=== PATIENT | male | born 1945 | race Caucasian/White ===

== ENCOUNTER 2019-07-10 08:08 | Outpatient (CLI) | payer OTHER, SELFPAY ==
--- NOTE | 2019-07-10 08:19 | MR_ITS ---
WS: [id number] MRI of the right hand, 07/10/2019 Clinical Data: RIGHT HAND PAIN Comparison: Right hand x-ray, 05/20/2019 Findings: There is narrowing of the right third MP joint. No periarticular inflammatory changes seen. There are no soft tissue masses. There is no evidence of any joint destruction. The carpal bones, metacarpals and phalanges appear to be intact with normal bone marrow signal. The carpal tunnel appears to be nor mal. The flexor and extensor tendons show no inflammatory change. MR/MR hand RT wo con* [id number] Impression: 1. Narrowing of the right third MP joint. 2. Negative for inflammatory change in the soft tissues. 3. No evidence of any joint destruction or periarticular soft tissue masses.
== END 2019-07-10 08:09 | disposition home or self-care (01) ==
LOC: RADWPI 08:09
PROVIDERS: Family Provider Family Medicine; Visit Provider Specialist
DX: M19.041 Primary osteoarthritis, right hand (principal)
CPT/HCPCS: 73218

== ENCOUNTER 2020-04-22 10:05 | Emergency (ER) | payer OTHER, SELFPAY ==
[2020-04-22 10:20] VITALS: BP 160/75; PULSE 79; RESP 18; TEMP 38.6; O2SAT 94; BMI 27.2
[2020-04-22 11:21] VITALS: O2SAT 90; O2SAT 92
--- NOTE | 2020-04-22 12:15 | ED_ITS ---
HPI - COVID General: Chief Complaint: Fever Stated Complaint: Weakness/SOB/ Covid + Saturday Time Seen by Provider: 04/22/20 11:29 Triage information: Has fever, cough or shortness of breath . No known COVID + exposure last 14 days History of Present Illness: HPI Narrative: 74-year-old male presents emergency room with complaint of cough cold congestion [facility]. He tested +2 days ago and the 6 symptoms started on the . Sheet he is on day 10 of symptoms today. He was referred here to get Covid monoclonal antibody infusion. MD complaint: known COVID positive Prior testing date: 04/20/20 COVID 19 common symptoms: positive fever(s), chills, cough, non-productive cough, fatigue, body aches, nasal congestion and nausea COVID 19 other sytmptoms: positive chest pressure; negative chest pain or requiring oxygen Pertinent comorbid conditions: hypertension and COPD/respiratory disease Treatment prior to arrival: acetaminophen and ibuprofen COVID Results: No Data to Display Review of Systems Const: Reports: fever(s), chills, body aches and fatigue ENMT: Reports: nasal congestion Card: Denies: chest pain, edema, dyspnea on exertion or orthopnea Resp: Reports: non-productive cough GI: Reports: nausea : Denies: flank pain, dysuria, urinary frequency or urinary urgency Skin/Breast: Denies: rash or pruritus PFS ED PFSH: Medical History COPD (chronic obstructive pulmonary disease) History of high blood pressure Social History Smoking and tobacco status: former smoker Alcohol intake: never Physical Exam Const: COMMON NORMALS: no acute distress GENERAL APPEARANCE: cooperative and comfortable ORIENTATION/CONSCIOUSNESS: Yes awake, Yes oriented to person, Yes oriented to place and Yes oriented to time HENMT: COMMON NORMALS: normocephalic, atraumatic and hearing grossly normal bilaterally HEAD & SCALP: normocephalic and atraumatic Neck/C-Spine: COMMON NORMALS: no JVD Resp: COMMON NORMALS: normal respiratory effort, No retractions, No use of accessory muscles and clear to auscultation bilaterally AUSCULTATION: clear to auscultation bilaterally Cardio: COMMON NORMALS: no JVD, regular rate, regular rhythm and No murmurs present (Cardio) RATE: regular rate RHYTHM: regular rhythm GI: COMMON NORMALS: Soft to palpation and No hepatosplenomegaly present AUSCULTATION: Yes normoactive bowel sounds PALPATION: Yes Soft to palpation, No Tenderness to palpation present (GI), No Guarding due to palpation present (GI) and Yes No hepatosplenomegaly present Extremity: COMMON NORMALS: normal to inspection, capillary refill normal, no clubbing, cyanosis or edema, no calf tenderness and no pedal edema Neuro: SENSORIUM/ORIENTATION: Yes oriented to person, Yes oriented to place and Yes oriented to time Skin: COMMON NORMALS: no rashes or lesions noted GENERAL SKIN EXAM: no rashes or lesions noted Course Vital Signs: Vital signs: Vital Signs Temperature 101.4 F H 04/22/20 10:20 Pulse Rate 79 04/22/20 10:20 Respiratory Rate 18 04/22/20 10:20 Blood Pressure 160/75 04/22/20 10:20 Pulse Oximetry 92 04/22/20 11:21 MDM - COVID MDM Narrative: Medical decision making narrative: She is on day 10 he can qualify for monoclonal antibody infusion but will need to get it today we called her and made arrangements with the infusion clinic. Patient discharged from here directly to there to receive monoclonal antibody infusion. We reviewed the consent risks benefits and alternatives here he prefers to go forward with it. COVID Results: No Data to Display Discharge Plan Discharge Patient Disposition: Home Clinical Impression: COVID-19 Condition: Stable Prescriptions: New dexamethasone 6 mg tablet 6 mg PO DAILY Qty: 7 RF: 0 albuterol sulfate 90 mcg/actuation HFA aerosol inhaler 2 inh INHALATION Q4H PRN (Reason: shortness of breath or wheezing) Qty: 18 RF: 0 No Action omeprazole 20 mg capsule,delayed release(DR/EC) 20 mg PO DAILY RF: 0 losartan 100 mg tablet 100 mg PO DAILY RF: 0 lysine 1,000 mg tablet 1,000 mg PO DAILY RF: 0 flaxseed oil 1,000 mg capsule 1,200 mg PO DAILY RF: 0 aspirin 81 mg tablet,delayed release (DR/EC) 81 mg PO DAILY RF: 0 methocarbamol 500 mg tablet 500 mg PO TID RF: 0 tramadol 50 mg tablet 50 mg PO DAILY RF: 0 melatonin 5 mg capsule PO RF: 0 Discharge Orders: Discharge ED (Routine); Ordered 04/22/20 Ordered By: Shadi Marie Referrals: [facility] [Primary Care Provider] - Discharge Diet: Usual diet Discharge Activity: Increase activity as tolerated Activity Restrictions/Additional Instructions: Patient will be discharged and brought over to the infusion clinic to receive monoclonal antibodies Coding Level of Care Code ED Police Pilot for Charmaine Siegel
== END 2020-04-22 12:28 | disposition home or self-care (01) ==
PROVIDERS: Emergency Provider Family Medicine
DX: U07.1 COVID-19 (principal); Z79.82 Long term (current) use of aspirin; J44.9 Chronic obstructive pulmonary disease, unspecified; Z87.891 Personal history of nicotine dependence
CPT/HCPCS: 12345; 99281

== ENCOUNTER → 2021-01-26 09:55 | Outpatient (BNVA) | payer OTHER, SELFPAY | PROVIDERS: Visit Provider Internal Medicine Pulmonary Disease | DX: Z01.812 Encounter for preprocedural laboratory examination (principal); Z20.822 Contact with and (suspected) exposure to COVID-19 | CPT/HCPCS: 87635 ==

== ENCOUNTER 2021-02-01 09:26 | Outpatient (CLI) | payer OTHER, SELFPAY ==
--- NOTE | 2021-02-01 10:44 | PFTS_ITS ---
Date of Study:02/01/21 Date of Dictation: MECHANICS: Forced vital capacity (FVC) is reduced. Forced expiratory volume in one second (FEV1) is reduced. FEV1/FVC is normal. FLOW VOLUME LOOP: Reduced flow at all lung volumes with scooping. LUNG VOLUMES: Total lung capacity (TLC) is normal. Residual volume (RV) is increased. DIFFUSING CAPACITY FOR CARBON MONOXIDE: Normal. INTERPRETATION: The prebronchodilator spirometry is consistent with severe airflow obstruction. The postbronchodilator spirometry is consistent with moderate restriction. The patient has a significant postbronchodilator response. Lung volumes are consistent with air trapping. Gas exchange (DLCO) is normal. The constellation of these findings is consistent with reversible airflow obstruction. MTDD
--- NOTE | 2021-02-01 11:00 | CT_ITS ---
WS: [id number] CT CHEST TECHNIQUE: Noncontrast CT of the chest with coronal and sagittal reformatted images. CLINICAL INFORMATION: dyspnea COMPARISON: None. DLP: 644.[address] scans at [facility] use at least one of these dose optimization techniques: automated e xposure control; mA and/or kV adjustment per patient size (includes targeted exams where dose is matc hed to clinical indication); or iterative reconstruction. FINDINGS: Moderate chronic emphysematous changes. Small noncalcified nodule left lower lobe measuring 4 mm. Rec ommend 12 month follow-up. No acute pulmonary infiltrates. No focal pneumonia or pleural fluid. Subse gmental atelectasis in the lung bases right greater than left. A few calcified granulomas. Aortic urbano cification. Coronary calcification. No mediastinal or hilar lymphadenopathy. No axillary lymphadenopa thy. Incidental hepatic cysts. Adrenal glands are normal. Normal GE junction. Mild thoracic kyphosis. Mild hypertrophic changes lower thoracic spine. CT/CT chest wo con [id number] IMPRESSION: 1. Moderate chronic emphysematous changes. No acute pulmonary infiltrates. 2. No focal pneumonia or pleural fluid 3. Slight subsegmental atelectasis in lung bases. 4. Small nodule left lower lobe measuring 4 mm. Recommend 12 month follow-up.
== END 2021-02-01 09:27 | disposition home or self-care (01) ==
LOC: RT 09:28
PROVIDERS: PCP Family Medicine; Visit Provider Internal Medicine Pulmonary Disease
DX: B94.8 Sequelae of other specified infectious and parasitic diseases (principal); R06.00 Dyspnea, unspecified; Z87.891 Personal history of nicotine dependence; R91.1 Solitary pulmonary nodule
CPT/HCPCS: 71250; 94060; 94618; 94726; 94729; J7611

== ENCOUNTER 2021-02-07 12:14 | Outpatient (CLI) | payer OTHER, SELFPAY ==
--- NOTE | 2021-02-07 | USCV_ITS ---
Dobutamine Stress Echo Jose Bradley Age: 75 Gender: M : 1945 Exam Date: 02/07/2021 12:43 Ordering Phys: Cisco Castillo MD Technologist: Acacia Davidson [place] [facility] [place]: Dyspnea, Former Smoker Rhythm: Sinus Patient History: Chest pain, Smoker Cardiac Medications: Non-dihydropyridine calcium channel miguel ángel Medications in past 24 hours: NONE Contrast: Total Dose (mL): Stress Results Protocol: Pharmacologic Peak Dose (???g/kg/min): 30 Duration (min:sec): 08:35 Atropine:(mg) 0.5 Target HR: 124 Double Product: 11752 Resting HR: 65 Resting BP: 139 / 65 Peak HR: 150 Peak BP: 160 / 79 Max Predicted HR: 146 103 % Max Predicted HR Stress Summary: The hemodynamic response to stress was normal. BP Response: Normal Reason for Termination: Exceeded target heart rate (85% max predicted) Cardiac Symptoms: Short of Breath ECG Analysis Resting EKG: Stress EKG: Arrhythmia: MEASUREMENTS (Male/Female) Normal Values FINDINGS Baseline: Normal left ventricle ejection fraction estimated ejection fraction 55%. No baseline wall motion abnormality Peak exercise level: Augmentation of left ventricle cavity was good no new wall motion abnormality noted Recovery: No new wall motion abnormality. CONCLUSIONS Echocardiographic portion of the stress test was not suggestive of ischemia. EKG segment will be documented separately. Rhianna Sinha MD (Electronically Signed) Final Date: 07 February 2021 20:02 S
[2021-02-07 12:25] VITALS: BMI 27.9
--- NOTE | 2021-02-07 12:30 | ECG_ITS ---
[facility] Test Date: 2021-02-07 Pat Name: Jose Bradley Department: Room: Gender: Male [employer]er: : 1945 Requested By: Cisco Owensr Marcus Order Number: [id number] Jennifer MD: FAROOQ GOMEZ Interpretive Statements NAME OF STUDY: DOBUTAMINE STRESS ECHOCARDIOGRAM INDICATION: Dyspnea, Former Smoker EXERCISE DATA: IV dobutamine was infused as per protocol. Baseline heart rate was 65 beats per minute. Baseline blood pressure was 139/65 millimeters of mercury. Target heart rate was 146 beats per minute. Maximum heart rate achieved was 150, which was 102 % of the target heart rate. Maximum blood pressure was 160/79 millimeters of mercury. Total exercise time was 8 minutes 35.The reason for ending the test was completion of the protocol. The patient complained of shortness of during the stress test, which then resolved at the end of the test. ELECTROCARDIOGRAM: BASELINE: Showed sinus rhythm, normal axis, no significant ST-T changes at the baseline noted. EXERCISE: At the peak exercise level, no significant ST-T changes suggestive of ischemia noted. RECOVERY: During the recovery period, heart rate dropped appropriately. No significant ST-T changes in the recovery suggestive of ischemia noted. CONCLUSION: 1. Heart rate response was appropriate. 2. Blood pressure response was appropriate. 3. Symptoms not suggestive of ischemia. 4. Electrocardiogram portion of the stress test was not suggestive of ischemia. 5. Nuclear scan will be documented separately. Electronically Signed On 02-09-2021 21:28:48 CDT by FAROOQ GOMEZ [id number]
[2021-02-07] MEDS: sodium chloride 0.9% 250 ML 75 ML IV (12:54)
[2021-02-07] MEDS: DOBUTtamine 200 MG in sodium chloride 0.9% 34 ML 13 MG IV (12:57)
[2021-02-07] MEDS: atropine 0.1 mg/mL Syr 10 mL 0.5 MG IVP (13:05)
[2021-02-07] MEDS: metoprolol tartrate 1 mg/1 mL SDV 5 mL 5 MG IVP (13:08)
[2021-02-07 13:37] VITALS: BP 156/84; PULSE 98
== END 2021-02-07 12:15 | disposition home or self-care (01) ==
LOC: CDL 12:17
PROVIDERS: PCP Family Medicine; Visit Provider Internal Medicine Pulmonary Disease
DX: R06.00 Dyspnea, unspecified (principal); Z87.891 Personal history of nicotine dependence
CPT/HCPCS: 93017; 93350; J0461; J1250; J3490; J7050

== ENCOUNTER → 2021-03-14 09:46 | Outpatient (BNVA) | payer OTHER, SELFPAY | PROVIDERS: PCP Family Medicine; Visit Provider Nurse Practitioner Family | DX: R06.02 Shortness of breath (principal); T50.B95A Adverse effect of other viral vaccines, initial encounter; I10 Essential (primary) hypertension | CPT/HCPCS: 80048; 83880 ==

== ENCOUNTER 2021-04-19 13:35 | Outpatient (CLI) | payer OTHER, SELFPAY ==
--- NOTE | 2021-04-19 14:15 | USCV_ITS ---
Jose Bradley Age: 75 Gender: M : 1945 Exam Date: 04/19/2021 14:18 Ordering Phys: Rhianna Sinha MD ([email or web address]) Technologist: [place] [facility] [place]: MURMUR BP: 140 / 82 HR: 64 Rhythm: Sinus Technical Quality: Adequate MEASUREMENTS (Male / Female) Normal Values 2D ECHO LV Diastolic Diameter PLAX 4.3 cm 4.2 - 5.9 / 3.9 - 5.3 cm LV Systolic Diameter PLAX 2.2 cm IVS Diastolic Thickness 1.1 cm 0.6 - 1.0 / 0.6 - 0.9 cm IVS Systolic Thickness 1.3 cm LVPW Diastolic Thickness 1.0 cm 0.6 - 1.0 / 0.6 - 0.9 cm LVPW Systolic Thickness 1.2 cm LVOT Diameter 2.1 cm LV Ejection Fraction 2D Teich 79.5 % LV Ejection Fraction MOD 2C 70.4 % LV Ejection Fraction 2C AL 70.6 % LA Diameter 3.6 cm LA Width 3.4 cm LA Height 4.5 cm RA Width 3.8 cm RA Height 4.2 cm M-MODE Aortic Annulus Diameter 4.0 cm LA Ao Ratio MM 1.0 MV E Point Septal Separation 0.6 cm DOPPLER AV Peak Velocity 152.0 cm/s LVOT Peak Velocity 108.0 cm/s AV Area Cont Eq vti 2.4 cm squared AV Area Cont Eq pk 2.4 cm squared MV Area PHT 5.0 cm squared Mitral E to A Ratio 0.8 MV E' Velocity 54.0 cm/s Mitral E to LV E' Septal Ratio 4.6 TR Peak Velocity 185.0 cm/s TR Peak Gradient 13.7 mmHg TV Peak E Velocity 89.0 cm/s Right Atrial Pressure 3.0 mmHg Pulmonary Artery Systolic Pressu 16.7 mmHg FINDINGS Left Ventricle Normal left ventricular cavity size. Normal left ventricular systolic function. No regional wall motion abnormalities. Left ventricular ejection fraction is estimated at 65 %. Grade I/IV diastolic dysfunction (abnormal relaxation filling pattern), normal to mildly elevated filling pressures. Right Ventricle The right ventricle is normal in size and function. Right Atrium The right atrium is normal in size. Left Atrium The left atrium is normal in size. Mitral Valve Mildly thickened mitral valve. No mitral valve stenosis. Mild mitral valve regurgitation. Aortic Valve Structurally normal aortic valve without significant sclerosis or stenosis. There is no aortic regurgitation. Tricuspid Valve Structurally normal tricuspid valve without significant stenosis or regurgitation. Pulmonary artery systolic pressure is normal. Pulmonic Valve Structurally normal pulmonic valve without significant stenosis. There is no pulmonic regurgitation. Pericardium Normal pericardium without effusion. Aorta Normal ascending aorta dimension. CONCLUSIONS 1-Normal left ventricular cavity size. Normal left ventricular systolic function. No regional wall motion abnormalities. Left ventricular ejection fraction is estimated at 65 %. Grade I/IV diastolic dysfunction (abnormal relaxation filling pattern), normal to mildly elevated filling pressures. 2-Mildly thickened mitral valve. No mitral valve stenosis. Mild mitral valve regurgitation. 3-Right atrial pressure is around 5 mm of mercury. 4-There is no pericardial effusion. 5-There are no prior echocardiogram studies to compare. Rhianna Sinha MD (Electronically Signed) Final Date: 19 April 2021 18:26 S
== END 2021-04-19 13:36 | disposition home or self-care (01) ==
LOC: RAD 13:36
PROVIDERS: PCP Family Medicine; Visit Provider Internal Medicine Cardiovascular Disease
DX: I27.20 Pulmonary hypertension, unspecified (principal); R06.02 Shortness of breath; R07.9 Chest pain, unspecified; R01.1 Cardiac murmur, unspecified; I05.9 Rheumatic mitral valve disease, unspecified
CPT/HCPCS: 93306

== ENCOUNTER 2021-05-08 12:33 | Outpatient (CLI) | payer OTHER, SELFPAY ==
[2021-05-08 13:19] LABS: Basophils # 0.1 10^3/uL (0.0-0.1); Eosinophils # 0.5 10^3/uL (0.0-0.8); Eosinophils % 6.3 %; Hemoglobin 14.4 g/dL (11.7-16.6); Lymphocytes # 1.9 10^3/uL (0.8-4.8); Mean Corpuscular HGB Conc 32.7 g/dL (30.0-36.0); Mean Corpuscular Hemoglobin 30.1 pg (28.0-34.0); Mean Corpuscular Volume 91.9 fl (80-94); Mean Platelet Volume 10.6 fL (7.4-10.4); Monocytes # 0.6 10^3/uL (0.2-0.9); Monocytes % 7.6 %; Neutrophils # 4.23 10^3/uL (1.8-7.7); Neutrophils % 58.8 %; Nucleated Red Blood Cells % 0 %; Platelet Count 310 10^3/cmm (130-400); Red Blood Count 4.79 10^6/uL (4.1-5.3); Red Cell Distribution Width 13.6 % (12.1-15.1); White Blood Count 7.2 10^3/uL (4.0-10.0)
[2021-05-09 13:53] LABS: Alternaria Alternata (M6) Ige <0.10 kU/L; Alternaria Class 0; Bermuda Class 0/1; Cat Dander (E1) Ige 0.51 kU/L; Cat Dander Class 1; D. Farinae Class 1; Dermatophagoides Class 1; Dermatophagoides Farinae (D2) 0.45 kU/L; Dermatophagoides Pteronyssinus 0.52 kU/L; Dog Dander (E5) Ige 0.22 kU/L; Dog Dander Class 0/1; Elm (T8) Ige <0.10 kU/L; House Dust (Greer) (H1) Ige <0.10 kU/L; House Dust (Hollister- Stier) 0.11 kU/L; House Dust Class 0; House Dust Class 0/1; Immunoglobulin E 398 kU/L (<OR=114); Immunoglobulin E 411 kU/L (<OR=114); Johnson Grass (G10) Ige <0.10 kU/L; Johnson Grass Cl 0; June Grass Class 0; June Grass(Kentucky Blue) (G8) <0.10 kU/L; Maple (Box Elder) (T1) Ige <0.10 kU/L; Maple Class 0; Meadow Fescue (G4) Ige <0.10 kU/L; Meadow Fescue Class 0; Mucor Racemosus Class 0; Oak (T7) Ige <0.10 kU/L; Oak Class 0; Orchard Grass (Cocksfoot) (G3) <0.10 kU/L; Penicillium Class 0; Penicillium Notatum (M1) Ige <0.10 kU/L; Perennial Rye Grass (G5) Ige <0.10 kU/L; Perennial Rye Grass Class 0; Sweet Vernal Class 0; Sweet Vernal Grass (G1) Ige <0.10 kU/L; Timothy Grass (G6) Ige <0.10 kU/L; Timothy Grass Class 0
[2021-05-09 13:57] LABS: Common Ragweed (Short) (W1) Ig <0.10 kU/L; Elm Class 0; English Plantain (W9) Ige <0.10 kU/L; English Plantain Class 0; Lamb'S Quarters (Goose Foot) 0.11 kU/L; Lamb'S Quarters Class 0/1; Ragweeed Class 0; Rough Marsh Elder (W16) Ige 0.11 kU/L; Rough Marsh Elder Class 0/1
[2021-05-10 20:52] LABS: Aspergillus Fumigatus, Igg Ab, 18.7 mg/L (<=102)
== END 2021-05-08 12:34 | disposition home or self-care (01) ==
LOC: LAB 12:37
PROVIDERS: PCP Family Medicine; Visit Provider Internal Medicine Pulmonary Disease
DX: R06.02 Shortness of breath (principal); J44.9 Chronic obstructive pulmonary disease, unspecified; J84.9 Interstitial pulmonary disease, unspecified
CPT/HCPCS: 36415; 82785; 85025; 86003; 86331; 86606; 86609

== ENCOUNTER → 2021-06-09 09:35 | Outpatient (BNVA) | payer OTHER, SELFPAY | PROVIDERS: PCP Family Medicine; Visit Provider Nurse Practitioner Family | DX: Z20.822 Contact with and (suspected) exposure to COVID-19 (principal) | CPT/HCPCS: 87635 ==

== ENCOUNTER → 2021-08-04 08:30 | Outpatient (BNVA) | payer OTHER, SELFPAY | PROVIDERS: PCP Family Medicine; Visit Provider Urology | DX: R97.20 Elevated prostate specific antigen [PSA] (principal); N40.1 Benign prostatic hyperplasia with lower urinary tract symptoms | CPT/HCPCS: 81003; 84153 ==

== ENCOUNTER → 2021-08-07 09:17 | Outpatient (BNVA) | payer OTHER, SELFPAY | PROVIDERS: PCP Family Medicine; Visit Provider Internal Medicine Pulmonary Disease | DX: J44.9 Chronic obstructive pulmonary disease, unspecified (principal); R91.1 Solitary pulmonary nodule; Z12.2 Encounter for screening for malignant neoplasm of respiratory organs; Z87.891 Personal history of nicotine dependence; U09.9 Post COVID-19 condition, unspecified; I10 Essential (primary) hypertension; K21.9 Gastro-esophageal reflux disease without esophagitis; E11.8 Type 2 diabetes mellitus with unspecified complications; N40.0 Benign prostatic hyperplasia without lower urinary tract symptoms | CPT/HCPCS: 99214 ==

== ENCOUNTER 2021-12-05 08:56 | Outpatient (CLI) | payer OTHER, SELFPAY | END 2021-12-05 08:57 | disposition home or self-care (01) | LOC: LAB 08:59 | PROVIDERS: PCP Family Medicine; Visit Provider Urology | DX: R97.20 Elevated prostate specific antigen [PSA] (principal); N40.1 Benign prostatic hyperplasia with lower urinary tract symptoms | CPT/HCPCS: 36415; 51798; 84153; 99213 ==

== ENCOUNTER 2022-03-07 09:33 | Outpatient (CLI) | payer OTHER, SELFPAY ==
--- NOTE | 2022-03-07 10:30 | CT_ITS ---
WS: [id number] CT CHEST WITHOUT INTRAVENOUS CONTRAST HISTORY: Follow-up pulmonary nodule. TECHNIQUE: Contiguous 5 mm axial imaging performed on the thorax. Coronal and sagittal reformats are submitted. All CT scans at [facility] use at least one of these dose optimization techniques: automated exposure control; mA and/or kV adjustment per patient size (includes targeted exams where dose is matched to clinical indication); or iterative reconstruction. CONTRAST: None DLP: 769.31 mGy.cm COMPARISON: 02/01/2021 Lungs and central airway: Mild pulmonary hyperexpansion. No increase in size of the 4 mm pulmonary no dule in the LEFT lower lobe. Subsegmental areas of scarring or atelectasis at the lung bases bilatera lly. Pleura: Normal. No pleural effusion. Heart and pericardium: Normal size heart with no pericardial effusion. Mediastinum and lauren: No adenopathy. Vessels: Mild atherosclerosis aorta. No dilatation. Moderate coronary artery calcification. Chest wall and lower neck: No soft tissue masses. Upper abdomen: Hepatic steatosis. No change in the low-attenuation 1.3 cm mass in the RIGHT lobe the liver. There are a few additional scattered similar hypodensities. Probably representing cysts. No in crease in size. No bile duct dilatation. Mild contraction of the gallbladder. Osseous structures: Increase in thoracic kyphosis. No osteoblastic or osteolytic bone disease. CT/CT chest con [id number] IMPRESSION: 1. No increase in size of the 4 mm LEFT lower lobe pulmonary nodule. Recommend [address] follow-up for surveillance. 2. Moderate coronary artery atherosclerosis. 3. Mild atherosclerosis aorta. 4. Chronic emphysema.
== END 2022-03-07 09:34 | disposition home or self-care (01) ==
LOC: RAD 09:33
PROVIDERS: PCP Family Medicine; Visit Provider Internal Medicine Pulmonary Disease
DX: R91.1 Solitary pulmonary nodule (principal); I25.10 Atherosclerotic heart disease of native coronary artery without angina pectoris; I70.0 Atherosclerosis of aorta; J43.9 Emphysema, unspecified
CPT/HCPCS: 71250

== ENCOUNTER 2022-06-04 08:42 | Outpatient (CLI) | payer OTHER, SELFPAY ==
[2022-06-04 09:42] LABS: Prostate Specific AG Urology 11.87 ng/mL (0-4)
== END 2022-06-04 08:43 | disposition home or self-care (01) ==
LOC: LAB 08:44
PROVIDERS: PCP Family Medicine; Visit Provider Urology
DX: R97.20 Elevated prostate specific antigen [PSA] (principal)
CPT/HCPCS: 36415; 84153

== ENCOUNTER → 2022-06-05 09:51 | Outpatient (BNVA) | payer OTHER, SELFPAY | PROVIDERS: PCP Family Medicine; Visit Provider Urology | DX: R97.20 Elevated prostate specific antigen [PSA] (principal); N40.1 Benign prostatic hyperplasia with lower urinary tract symptoms | CPT/HCPCS: 81003; 99213 ==

== ENCOUNTER → 2023-03-04 07:58 | Outpatient (BNVA) | payer OTHER, SELFPAY | PROVIDERS: PCP Family Medicine; Visit Provider Thoracic Surgery (Cardiothoracic Vascular Surgery) | DX: S91.115D Laceration without foreign body of left lesser toe(s) without damage to nail, subsequent encounter; W23.0XXD Caught, crushed, jammed, or pinched between moving objects, subsequent encounter | CPT/HCPCS: 97597; 99213; A6021 ==

== ENCOUNTER → 2023-03-11 08:47 | Outpatient (BNVA) | payer OTHER, SELFPAY | PROVIDERS: PCP Family Medicine; Visit Provider Nurse Practitioner Family | DX: S67.193D Crushing injury of left middle finger, subsequent encounter (principal); W23.0XXD Caught, crushed, jammed, or pinched between moving objects, subsequent encounter | CPT/HCPCS: 99212 ==

== ENCOUNTER → 2023-03-18 08:47 | Outpatient (BNVA) | payer OTHER, SELFPAY | PROVIDERS: PCP Family Medicine; Visit Provider Thoracic Surgery (Cardiothoracic Vascular Surgery) | DX: Z09 Encounter for follow-up examination after completed treatment for conditions other than malignant neoplasm (principal); Z87.2 Personal history of diseases of the skin and subcutaneous tissue | CPT/HCPCS: 99212 ==

== ENCOUNTER 2024-05-07 12:36 | Outpatient (CLI) | payer OTHER, SELFPAY | END 2024-05-07 12:37 | disposition home or self-care (01) | LOC: LAB 12:38 | PROVIDERS: PCP Family Medicine; Visit Provider Urology | DX: C61 Malignant neoplasm of prostate (principal) | CPT/HCPCS: 36415; 84153 ==

== ENCOUNTER 2024-11-05 13:51 | Outpatient (CLI) | payer OTHER, SELFPAY ==
[2024-11-05 14:52] LABS: Prostate Specific Antigen 2.400 ng/mL (0-4)
== END 2024-11-05 13:52 | disposition home or self-care (01) ==
LOC: LAB 13:56
PROVIDERS: PCP Family Medicine; Visit Provider Urology
DX: C61 Malignant neoplasm of prostate (principal)
CPT/HCPCS: 36415; 84153

== ENCOUNTER → 2025-01-18 08:20 | Outpatient (BNVA) | payer OTHER, SELFPAY | PROVIDERS: PCP Family Medicine; Visit Provider Internal Medicine | DX: J44.89 Other specified chronic obstructive pulmonary disease (principal); R91.1 Solitary pulmonary nodule; Z87.891 Personal history of nicotine dependence; J44.9 Chronic obstructive pulmonary disease, unspecified | CPT/HCPCS: 99214; Q3014 ==

== ENCOUNTER → 2025-02-18 12:48 | Outpatient (BNVA) | payer OTHER, SELFPAY | PROVIDERS: PCP Family Medicine; Visit Provider Internal Medicine | DX: J44.89 Other specified chronic obstructive pulmonary disease (principal); R91.1 Solitary pulmonary nodule; Z87.891 Personal history of nicotine dependence; J44.9 Chronic obstructive pulmonary disease, unspecified | CPT/HCPCS: 99214; Q3014 ==

== ENCOUNTER → 2025-02-19 08:55 | Outpatient (BNVA) | payer OTHER, SELFPAY | PROVIDERS: PCP Family Medicine; Visit Provider Dermatology | DX: L71.9 Rosacea, unspecified (principal); D36.15 Benign neoplasm of peripheral nerves and autonomic nervous system of abdomen; D48.5 Neoplasm of uncertain behavior of skin | CPT/HCPCS: 11102; 69100; 99204 ==

== ENCOUNTER 2025-03-25 12:10 | Emergency (ER) | payer OTHER, SELFPAY ==
[2025-03-25 12:13] VITALS: BP 128/72; PULSE 101; TEMP 36.7; O2SAT 97; BMI 25.8
--- NOTE | 2025-03-25 12:28 | XR_ITS ---
WS: [id number] XR ribs RT mn 3V w CXR1V [id number] REASON FOR EXAM: injury FINDINGS: No acute rib fracture identified. No pneumothorax or subcutaneous emphysema. No pleural effusion. XR/XR ribs RT mn 3V w CXR1V [id number] IMPRESSION: No acute abnormality.
--- NOTE | 2025-03-25 12:28 | CTR_ITS ---
PROCEDURE INFORMATION: Exam: CT Head Without Contrast Exam date and time: 03/25/2025 12:51 PM Age: 79 years old Clinical indication: Injury or trauma TECHNIQUE: Imaging protocol: Computed tomography of the head without contrast. Radiation optimization: All CT scans at this facility use at least one of these dose optimization techniques: automated exposure control; mA and/or kV adjustment per patient size (includes targeted exams where dose is matched to clinical indication); or iterative reconstruction. COMPARISON: No relevant prior studies available. RADIATION DOSE METRICS: Total DLP (mGy-cm): 1116.01 FINDINGS: Limitations: Left-sided cochlear implant creates artifact limiting evaluation of the adjacent bone and brain. Brain: No acute intracranial hemorrhage. No confluent lobar infarct. No mass effect. Cerebral ventricles: The ventricles and sulci are normal in size and shape for the patient's stated age. Paranasal sinuses: Left maxillary antrostomy. Fluid level in the left maxillary sinus. Mastoid air cells: Left mastoidectomy. Bones: No acute calvarial fracture. Soft tissues: Right frontal scalp laceration. CT/CT head wo con* [id number] IMPRESSION: Left cochlear implant creates artifact limiting evaluation. No obvious acute intracranial abnormality. Recommend clinical correlation and follow-up imaging as clinically warranted.
--- NOTE | 2025-03-25 12:29 | W.ED.HEATRA ---
Documented by User: Malcolm Stewart MD 03/25/25 14:42 HPI - Head Injury General: Chief complaint: Head Injury Stated complaint: laceration to forehead Time Seen by Provider: 03/25/25 12:25 Source: patient Mode of arrival: ambulatory Limitations: no limitations History of Present Illness: 79-year-old male states he is working with cattle and the bull kicked a gate and swung and hit him in the forehead happened roughly an hour ago does have a large laceration to his forehead denies any loss conscious does have a headache he rates a 3 out of 10 also has some slight right sided rib pain denies any neck pain. Related Data Home Medications ?Medication ?Instructions ?Recorded ?Confirmed losartan 100 mg tablet 100 mg PO DAILY 06/22/19 02/18/25 omeprazole 20 mg capsule,delayed 20 mg PO DAILY 06/22/19 02/18/25 release tramadol 50 mg tablet 50 mg PO DAILY 06/22/19 02/18/25 amlodipine 2.5 mg tablet 2.5 mg PO DAILY 12/26/20 02/18/25 multivitamin 1 tab PO DAILY 03/14/21 02/18/25 melatonin 5 mg capsule 10 mg PO 05/31/21 02/18/25 aspirin 81 mg capsule 81 mg PO DAILY 01/18/25 02/18/25 budesonide 160 mcg-glycopyr 9 2 inh inhalation BID 01/18/25 02/18/25 mcg-formot 4.8 mcg/actuation HFA inhaler (Breztri Aerosphere) Previous Rx's ?Medication ?Instructions ?Recorded psyllium husk 0.4 gram capsule 2 g (5 x 0.4 gram) PO DAILY #90 02/16/21 (Daily Fiber) caps tamsulosin 0.4 mg capsule 0.4 mg PO .Twice daily #180 caps 08/04/21 albuterol sulfate 90 mcg/actuation 1 inh inhalation QID PRN shortness 01/18/25 aerosol inhaler (Ventolin HFA) of breath or wheezing #6.7 grams roflumilast 500 mcg tablet 500 mcg PO DAILY #30 tabs 01/18/25 Allergies Allergy/AdvReac Type Severity Reaction Status Date / Time No Known Allergies Allergy Verified 03/25/25 12:24 Review of Systems Neuro: Reports: headache(s) PFSH ED PFSH: Medical History BPH loc w urin obs/LUTS Elevated PSA GERD (gastroesophageal reflux disease) Cochlear implant status Neuropathy Essential hypertension COPD (chronic obstructive pulmonary disease) History of high blood pressure Surgical History S/P skin neoplasm resection S/P nasal polypectomy S/P ear surgery Family History Son Myocardial infarct Brother Myocardial infarct Diabetes Daughter Diabetes Father , IN HIS 80'S Dementia Mother , IN HER 80'S of unknown cause Other Hypertension Social History Smoking and tobacco/nicotine status: former use of tobacco/nicotine (1 ppd x 40 years Quit in 2004) Alcohol intake: never Substance/Drug Use: never Marital status: Current occupational status: retired Physical Exam Const: COMMON NORMALS: no acute distress, patient oriented x3 and healthy appearing HENMT: COMMON NORMALS: normocephalic HEAD & SCALP: normocephalic OTHER: 6cm laceration to forehead Eye: COMMON NORMALS: Equal, round and reactive pupils present and EOMs intact bilaterally PUPIL: Yes Equal, round and reactive pupils present Neck/C-Spine: COMMON NORMALS: full ROM and supple Chest: COMMONS NORMALS: normal inspection of the chest and normal palpation of entire chest wall Resp: COMMON NORMALS: normal respiratory effort, No retractions, No use of accessory muscles and clear to auscultation bilaterally AUSCULTATION: clear to auscultation bilaterally Cardio: COMMON NORMALS: regular rate, regular rhythm and No murmurs present (Cardio) RATE: regular rate RHYTHM: regular rhythm GI: COMMON NORMALS: Normal to inspection, nondistended, normoactive bowel sounds present, Soft to palpation, non-tender and no masses PALPATION: Yes Soft to palpation Extremity: COMMON NORMALS: normal to inspection and full ROM Neuro: COMMON NORMALS: patient oriented x3, moves all extremities and no focal motor deficits Psych: COMMON NORMALS: mental status grossly normal, Normal thought process present and cooperative THOUGHT PROCESS: Normal thought process present Skin: COMMON NORMALS: no rashes or lesions noted and no wounds GENERAL SKIN EXAM: no rashes or lesions noted Course Vital Signs: Vital signs: Vital Signs Temperature 98.1 F 03/25/25 12:13 Pulse Rate 101 H 03/25/25 12:13 Respiratory Rate 18 03/25/25 12:45 Blood Pressure 141/71 03/25/25 13:40 Pulse Oximetry 98 03/25/25 13:40 Oxygen Delivery Me thod Room Air 03/25/25 13:40 MDM - Head Injury Medcial Decision Making 8-year-old male presents here with head injury along with head laceration after being struck by a gate head CT here showed no fracture no signs of hemorrhage he is well-appearing here did suture his head he is have suture removal in 7 to 10 days return if worsening he understands agrees to plan Medical Records I reviewed the patient's medical records. Lab Data Radiology Impressions Head CT 03/25/25 12:28 IMPRESSION: Left cochlear implant creates artifact limiting evaluation. No obvious acute intracranial abnormality. Recommend clinical correlation and follow-up imaging as clinically warranted. Ribs X-Ray 03/25/25 12:28 IMPRESSION: No acute abnormality. All radiology interpretation(s) finalized by discharge Discharge Plan Discharge Patient Disposition: Home Clinical Impression: Laceration of head Condition: Stable Prescriptions: No Action omeprazole 20 mg capsule,delayed release(DR/EC) 20 mg PO DAILY losartan 100 mg tablet 100 mg PO DAILY tramadol 50 mg tablet 50 mg PO DAILY melatonin 5 mg capsule 10 mg PO amlodipine 2.5 mg tablet 2.5 mg PO DAILY psyllium husk [Daily Fiber] 0.4 gram capsule 2 g PO DAILY Qty: 90 0RF multivitamin Tablet 1 tab PO DAILY tamsulosin 0.4 mg capsule 0.4 mg PO .Twice daily Qty: 180 3RF Breztri Aerosphere 160-9-4.8 mcg/actuation HFA aerosol inhaler 2 inh inhalation BID aspirin 81 mg capsule 81 mg PO DAILY albuterol sulfate [Ventolin HFA] 90 mcg/actuation HFA aerosol inhaler 1 inh inhalation QID PRN (Reason: shortness of breath or wheezing) Qty: 6.7 6RF roflumilast 500 mcg tablet 500 mcg PO DAILY Qty: 30 11RF Discharge Orders: Discharge ED (Routine); Ordered 03/25/25 Ordered By: Malcolm Stewart Referrals: Ericka Salgado MD [Primary Care Provider, Family Practice] Discharge Diet: Advance as tolerated Discharge Activity: Resume usual activity Patient Instructions: Care For Your Stitches (ED), Head Laceration (ED) Activity Restrictions/Additional Instructions: suture removal in 7 days Print Language: Bahraini Coding Level of Care Code ED Continuity Writer for Chg Fwd Documented by User: YUMIKO Parsons 03/25/25 14:41 HPI - Head Injury General: Chief complaint: Head Injury Stated complaint: laceration to forehead Time Seen by Provider: 03/25/25 12:25 Related Data Home Medications ?Medication ?Instructions ?Recorded ?Confirmed losartan 100 mg tablet 100 mg PO DAILY 06/22/19 02/18/25 omeprazole 20 mg capsule,delayed 20 mg PO DAILY 06/22/19 02/18/25 release tramadol 50 mg tablet 50 mg PO DAILY 06/22/19 02/18/25 amlodipine 2.5 mg tablet 2.5 mg PO DAILY 12/26/20 02/18/25 multivitamin 1 tab PO DAILY 03/14/21 02/18/25 melatonin 5 mg capsule 10 mg PO 05/31/21 02/18/25 aspirin 81 mg capsule 81 mg PO DAILY 01/18/25 02/18/25 budesonide 160 mcg-glycopyr 9 2 inh inhalation BID 01/18/25 02/18/25 mcg-formot 4.8 mcg/actuation HFA inhaler (Breztri Aerosphere) Previous Rx's ?Medication ?Instructions ?Recorded psyllium husk 0.4 gram capsule 2 g (5 x 0.4 gram) PO DAILY #90 02/16/21 (Daily Fiber) caps tamsulosin 0.4 mg capsule 0.4 mg PO .Twice daily #180 caps 08/04/21 albuterol sulfate 90 mcg/actuation 1 inh inhalation QID PRN shortness 01/18/25 aerosol inhaler (Ventolin HFA) of breath or wheezing #6.7 grams roflumilast 500 mcg tablet 500 mcg PO DAILY #30 tabs 01/18/25 Allergies Allergy/AdvReac Type Severity Reaction Status Date / Time No Known Allergies Allergy Verified 03/25/25 12:24 REPLACED BY [facility] ED PFSH: Medical History BPH loc w urin obs/LUTS Elevated PSA GERD (gastroesophageal reflux disease) Cochlear implant status Neuropathy Essential hypertension COPD (chronic obstructive pulmonary disease) History of high blood pressure Surgical History S/P skin neoplasm resection S/P nasal polypectomy S/P ear surgery Family History Son Myocardial infarct Brother Myocardial infarct Diabetes Daughter Diabetes Father , IN HIS 80'S Dementia Mother , IN HER 80'S of unknown cause Other Hypertension Social History Smoking and tobacco/nicotine status: former use of tobacco/nicotine (1 ppd x 40 years Quit in 2004) Alcohol intake: never Substance/Drug Use: never Marital status: Current occupational status: retired Procedures Laceration Laceration 1: Site: face (forehead) Size (cm): 6.0 Description: irregular Depth: simple, single layer and involves muscle layer Local Anesthetic: lidocaine 1% and with epi Amount of anesthesia used (mL): 4.0 Pre-repair: wound explored and irrigated extensively Skin layer closed with: vicryl Size (cm): 4-0 Number of sutures: 8 Subcutaneous layer closed with: vicryl Size: 4-0 Number of sutures: 6 Technique: running Course ED course: I was consulted by Dr. Stewart to repair patient's forehead laceration. This was repaired as documented. Other than laceration repair, I did not actively participate in any portion of patient's care. ES Vital Signs: Vital signs: Vital Signs Temperature 98.1 F 03/25/25 12:13 Pulse Rate 101 H 03/25/25 12:13 Respiratory Rate 18 03/25/25 12:45 Blood Pressure 141/71 03/25/25 13:40 Pulse Oximetry 98 03/25/25 13:40 Oxygen Delivery Me thod Room Air 03/25/25 13:40 MDM - Head Injury Lab Data Radiology Impressions Head CT 03/25/25 12:28 IMPRESSION: Left cochlear implant creates artifact limiting evaluation. No obvious acute intracranial abnormality. Recommend clinical correlation and follow-up imaging as clinically warranted. Ribs X-Ray 03/25/25 12:28 IMPRESSION: No acute abnormality. Discharge Plan Discharge Patient Disposition: Home Clinical Impression: Laceration of head Condition: Stable Prescriptions: No Action omeprazole 20 mg capsule,delayed release(DR/EC) 20 mg PO DAILY losartan 100 mg tablet 100 mg PO DAILY tramadol 50 mg tablet 50 mg PO DAILY melatonin 5 mg capsule 10 mg PO amlodipine 2.5 mg tablet 2.5 mg PO DAILY psyllium husk [Daily Fiber] 0.4 gram capsule 2 g PO DAILY Qty: 90 0RF multivitamin Tablet 1 tab PO DAILY tamsulosin 0.4 mg capsule 0.4 mg PO .Twice daily Qty: 180 3RF Breztri Aerosphere 160-9-4.8 mcg/actuation HFA aerosol inhaler 2 inh inhalation BID aspirin 81 mg capsule 81 mg PO DAILY albuterol sulfate [Ventolin HFA] 90 mcg/actuation HFA aerosol inhaler 1 inh inhalation QID PRN (Reason: shortness of breath or wheezing) Qty: 6.7 6RF roflumilast 500 mcg tablet 500 mcg PO DAILY Qty: 30 11RF Discharge Orders: Discharge ED (Routine); Ordered 03/25/25 Ordered By: Malcolm Stewart Referrals: Ericka Salgado MD [Primary Care Provider, Family Practice] Discharge Diet: Advance as tolerated Discharge Activity: Resume usual activity Patient Instructions: Care For Your Stitches (ED), Head Laceration (ED) Activity Restrictions/Additional Instructions: suture removal in 7 days Print Language: Bahraini Coding Level of Care Code ED Continuity Writer for Charmaine Siegel
[2025-03-25] MEDS: tetanus-dipt-pertussis 0.5 mL SDV IM (12:35)
[2025-03-25 12:45] VITALS: BP 118/73; RESP 18
--- NOTE | 2025-03-25 13:00 | PC.PHAR ---
[facility], [facility] for medication list 03/25/25 at 1pm
[2025-03-25 13:40] VITALS: BP 141/71; O2SAT 98
== END 2025-03-25 14:13 | disposition home or self-care (01) ==
PROVIDERS: Emergency Provider Emergency Medicine; PCP Family Medicine
DX: S01.81XA Laceration without foreign body of other part of head, initial encounter (principal); Z79.82 Long term (current) use of aspirin; F17.210 Nicotine dependence, cigarettes, uncomplicated; Z85.828 Personal history of other malignant neoplasm of skin; I10 Essential (primary) hypertension; J44.9 Chronic obstructive pulmonary disease, unspecified; W20.8XXA Other cause of strike by thrown, projected or falling object, initial encounter
CPT/HCPCS: 70450; 71101; 90471; 90715; 99284